=== PATIENT | male | born 1990 | race Caucasian/White ===

== ENCOUNTER 2020-08-28 10:16 | Emergency (ER) | payer SELFPAY ==
[~2020-08-28] VITALS: Ht 172.7 cm; Wt 70.5 kg
[2020-08-28] MEDS ORDERED: BARIUM SULFATE 0.1% SUSPENSION 450 ML BOTTLE PO ONE (12:00)
[2020-08-28] MEDS ORDERED: IOHEXOL 240 MG/ML 50 ML VIAL PO ONE (12:00)
[2020-08-28 13:40] VITALS: BP 123/81
== END 2020-08-28 14:05 | disposition home or self-care (01) ==
LOC: EMS 10:22
DX: R13.10 Dysphagia, unspecified (principal); F17.200 Nicotine dependence, unspecified, uncomplicated
CPT/HCPCS: 70490; 74220; 99284; Q9966